=== PATIENT | female | born 1955 | race Two or more races ===

== ENCOUNTER 2024-05-02 19:49 | Emergency (ER) | payer OTHER ==
[~2024-05-02] VITALS: Ht 152.4 cm; Wt 62.0 kg
[2024-05-02] MEDS: SODIUM CHLORIDE 0.9% 1,000 ML IV ONE (22:03)
[2024-05-02] MEDS: METOCLOPRAMIDE HCL 5MG/ml INJ 2ml VIAL IV ONE (22:05)
[2024-05-02] MEDS: ACETAMINOPHEN 325 MG TAB PO ONE (22:05)
[2024-05-02 22:09] VITALS: PULSE 65; RESP 16; TEMP 97.8; O2SAT 96
[2024-05-02 22:20] LABS: Urine Bacteria None Seen /hpf (None Seen)
[2024-05-02 22:37] LABS: Urine Blood Negative /uL (Negative); Urine Clarity Clear (Clear); Urine Color Light-Yellow (Yellow); Urine Protein, UAD Negative (Negative); Urine Specific Gravity 1.009 (1.001-1.035); Urine Urobilinogen Normal (Negative); Urine WBC 2 /hpf (0 - 5)
[2024-05-02 22:59] VITALS: BP 142/66; PULSE 60; RESP 16; O2SAT 98
== END 2024-05-02 23:00 | disposition home or self-care (01) ==
LOC: ER 19:49
DX: G43.909 Migraine, unspecified, not intractable, without status migrainosus (principal); H53.141 Visual discomfort, right eye
CPT/HCPCS: 70450; 81001; 82962; 96360; 99284; J7030